=== PATIENT | male | born 1990 | race Asian ===

== ENCOUNTER 2025-07-02 07:21 | Emergency (ER) | payer OTHER ==
[~2025-07-02] VITALS: Ht 167.6 cm; Wt 99.8 kg
[2025-07-02] MEDS ORDERED: ACETAMINOPHEN ES 500 MG TABLET ONE (07:58)
[2025-07-02] MEDS ORDERED: CYCLOBENZAPRINE 10 MG TABLET ONE (07:59)
[2025-07-02] MEDS: CYCLOBENZAPRINE 10 MG TABLET PO ONE (08:14)
[2025-07-02] MEDS: ACETAMINOPHEN ES 500 MG TABLET PO ONE (08:15)
[2025-07-02] MEDS ORDERED: CYCL10TA9 PO (09:41)
[2025-07-02] MEDS ORDERED: IBUP-1490 PO (09:41)
[2025-07-02 10:00] VITALS: BP 118/66; TEMP 98; O2SAT 98
== END 2025-07-02 10:01 | disposition home or self-care (01) ==
LOC: ER 07:28
DX: S13.4XXA Sprain of ligaments of cervical spine, initial encounter (principal); V43.52XA Car driver injured in collision with other type car in traffic accident, initial encounter; Y93.89 Activity, other specified; Y92.488 Other paved roadways as the place of occurrence of the external cause; Y99.8 Other external cause status
CPT/HCPCS: 70450-TC; 72125-TC